=== PATIENT | male | born 1980 | race Two or more races ===

== ENCOUNTER 2017-06-19 09:07 | Emergency (ER) | payer OTHER ==
[~2017-06-19] VITALS: Ht 167.6 cm; Wt 75.7 kg
[2017-06-19] MEDS ORDERED: ACIDOPHILUS1 EAC3 PO (11:42)
== END 2017-06-19 12:11 | disposition home or self-care (01) ==
LOC: ER 09:07
DX: B34.9 Viral infection, unspecified (principal)